=== PATIENT | male | born 1965 | race Caucasian/White ===

== ENCOUNTER 2018-02-10 18:01 | Emergency (ER) | payer OTHER, MEDICAID ==
--- NOTE | 2018-02-10 19:40 | ED Physician Chart ---
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 has been living at his mother's house helping with daily activities. he does no heavy lifting. reports spontaneous onset of lower back pain with radiation to right thigh wrapping around from lateral right buttock to right outer thigh then to inferior inner thigh. has never had this before. went to his PCP when it started last , given ibuprofen. then went to urgent care and given stronger pain medication and muscle relaxer medication. has been taking these medications. reports continued pain today. no worsening of pain and also no decrease in pain. says moving around causes lower back pain as above. no trauma. no bowel or bladder incontinence. pt with normal movements of lower limbs. no weakness is reported. only pain. pain does not travel beyond right knee. mod factors: none assoc s/s: none PSH: cardiac stent few years ago hx from pt. Allergies:: Allergies Allergy/AdvReac Type Severity Reaction Status Date / Time No Known Allergies Allergy Verified 02/10/18 18:11 Vitals:: Vital Signs - 8 hr 02/10/18 18:14 Temp 97.7 F HR 76 RR 17 BP 172/95 O2 Sat % 100 Historian:: Patient Review:: Nurse's Note Reviewed ED Review of Systems - Review of Systems General/Constitutional: No fever, No chills, No weight loss, No weakness, No diaphoresis, No edema, No loss of appetite Skin: No skin lesions, No rash, No bruising Head: No headache, No light-headedness Eyes: No loss of vision, No pain, No diplopia ENT: No earache, No nasal drainage, No sore throat, No tinnitus Neck: No neck pain, No swelling, No thyromegaly, No stiffness, No mass noted Cardio Vascular: No chest pain, No palpitations, No PND, No orthopnea, No edema Pulmonary: No SOB, No cough, No sputum, No wheezing GI: No nausea, No vomiting, No diarrhea, No pain, No melena, No hematochezia, No constipation, No hematemesis G/U: No dysuria, No frequency, No hematuria Musculoskeletal: No bone or joint pain, Back pain, No muscle pain Endocrine: No polyuria, No polydipsia Psychiatric: No prior psych history, No depression, No anxiety, No suicidal ideation Hematopoietic: No bruising, No lymphadenopathy Allergic/Immuno: No urticaria, No angioedema Neurological: No syncope, No focal symptoms, No weakness, No paresthesia, No headache, No seizure, No dizziness, No confusion, No vertigo ED Past Medical History - Past Medical History Past Medical History: CAD Family History: None Social History: Non Smoker, No Alcohol, No Drug Use, Single, Lives With Parents , Other Surgical History: other (cardiac stent) Psychiatricy History: None Medication: Reviewed Family Medical History - Family Member Mother History Unknown: Yes ED Physical Exam - Physical Examination General/Constitutional: Awake, Well-developed, well-nourished, Alert, No distress, GCS 15, Non-toxic appearing, Ambulatory Head: Atraumatic Eyes: Lids, conjuctiva normal, PERRL, EOMI Skin: Nl inspection, No skin lesions, No ecchymosis, Well hydrated ENMT: External ears, nose nl, Nasal exam nl, Lips, teeth, gums nl, Oropharynx nl Neck: Nontender, Full ROM w/o pain, No bruit, No mass, No stridor Respiratory: Nl effort/Exclusion, Clear to Auscultation, No Wheeze/Rhonchi/Rales Cardio Vascular: RRR, No murmur, gallop, rubs, NL S1 S2 GI: No tenderness/rebounding/guarding, Nondistended, No McBurney tenderness : No CVA tenderness Extremities: No tenderness or effusion, Full ROM, normal strength in all extremities (mildly hyporeflexive patellar and achilles reflexes bilaterally. ) , No edema, Normal digits & nails Neuro/Psych: Alert/oriented, DTR's symmetric, Normal sensory exam, Normal motor strength, Judgement/insight normal, Mood normal, Normal gait, No focal deficits Misc: Normal back, No paraspinal tenderness ED Labs/Radiology/EKG Results - Radiology Results Results: xray lumbar spine no acute dislocation no acute fracture some disc narrowing at L4/L5 ER READ ED Assessment - Assessment General Assessment: medical decision making pt with 4 day history of nontraumatic lower back strain. says he has not been working for several days, possibly longer. pt reports he is in a state of deconditioning. recalls and reports no trauma. says this has not happened before. findings do not suggest a surgical emergency. xray shows some narrowing at L4/L5 no acute fracture or dislocation - ER READ pt is witnessed to be able to move from supine to seated with no appreciable weakness or difficulty. can bend forward and remove shoes and socks without difficulty witnessed by physician. pt appears to have musculoskeletal lumbar spine strain. has received meds from his physician and urgent care. no new scripts to be given. pt is informed of clinical decision making ED Septic Shock - . Is Septic Shock (SBP<90, OR Lactate>4 mmol\L) present?: No - <6hrs of presentation: Vital Signs: Vital Signs - 8 hr 02/10/18 18:14 Temp 97.7 F HR 76 RR 17 BP 172/95 O2 Sat % 100 Assessment of Lungs: Lung CTA bilateral Assessment of Heart: RRR, No Rub, No Murmur Capillary refill evaluation: Capillary refill < 2 secs Skin Exam: Warm, Dry, No Edema ED Reassessment (Disposition) - Reassessment Reassessment Condition:: Improved - Diagnosis Diagnosis:: low back strain, pain with right sided symptoms - Aftercare/Follow up Instructions Aftercare/Follow-Up Instructions:: Refer to Discharge Instructions Medication Prescribed:: no medications prescribed - Patient Disposition Discharge/Transfer:: Home Condition at Disposition:: Stable, Improved
--- NOTE | 2018-02-11 08:36 | Diagnostic Imaging Report ---
Lumbar spine 3 views Indication: Low back pain Comparison: none Findings: Advanced degenerative changes of the lumbar spine are noted particularly of the facet joints of the lower lumbar spine. There is also mild disc space loss of height at L4/L5. No acute compression fracture or subluxation. There is mild spinal scoliosis. Atherosclerosis is noted. Impression: Advanced degenerative changes, particularly of the facet joints of the lower lumbar spine No evidence of an acute compression fracture or subluxation Mild scoliosis. Atherosclerosis. In the setting of trauma, if clinical symptoms persist and there is continued concern for an occult fracture, follow up exams in 5-7 days is suggested.
== END 2018-02-10 20:30 | disposition home or self-care (01) ==
LOC: ER 18:01
DX: S39.012A Strain of muscle, fascia and tendon of lower back, initial encounter (principal); I25.10 Atherosclerotic heart disease of native coronary artery without angina pectoris; Z95.5 Presence of coronary angioplasty implant and graft; X58.XXXA Exposure to other specified factors, initial encounter; Y93.89 Activity, other specified; Y92.89 Other specified places as the place of occurrence of the external cause; Y99.8 Other external cause status
CPT/HCPCS: 72110-TC; J1885; Z7502